=== PATIENT | female | born 1995 | race Caucasian/White ===

== ENCOUNTER 2023-01-16 23:24 | Inpatient (IN) ==
[2023-01-17] MEDS ORDERED: LACTATED RINGER'S 1,000 ML IV PRN (00:01)
[2023-01-17] MEDS ORDERED: LIDOCAINE 1% LOCAL 20 ML VIAL INFIL PRN (00:01)
[2023-01-17] MEDS ORDERED: OXYTOCIN 30 UNITS/500 ML BAG IV PRN ×2 (00:01→00:48)
[2023-01-17] MEDS ORDERED: OXYTOCIN 30 UNITS/500ML NSS IV ONE (00:10)
[2023-01-17] MEDS ORDERED: METHYLERGONOVINE MALEATE 0.2 MG/ML AMP ONE (00:34)
[2023-01-17 00:35] LABS: Hematocrit (blood only) 38.5 % (37.0-47.0); Hemoglobin 13.6 g/dl (12.0-16.0); Mean Corpuscular Hemoglobin 30.8 pg (25.0-34.0); Mean Corpuscular Hgb Conc 35.3 g/dL (32.0-36.0); Mean Corpuscular Volume 87.1 fL (80.0-100.0); Platelet Count 197 K/uL (130-400); RDW Coefficient of Variation 14.1 % (11.5-14.5); RDW Standard Deviation 45.1 fL (36.4-46.3); Red Blood Count 4.42 M/uL (4.20-5.40); White Blood Count 11.96 K/ul (4.8-10.8)
--- NOTE | 2023-01-17 00:47 | Delivery Summary ---
Vaginal Delivery Summary Date of Service January 17, 2023 Vaginal Delivery Summary Delivery Note 27 F P1001 at 39.6 weeks presents to L&D with SROM clear fluid and onset of precipitous labor and delivery. She pushed twice over intact perineum with delivery of live female CARLINE with nuchal cord x1 resuced at delivery of the head. Cord blood obtained followed by spontaneous delivery of intact placenta. Some atony noted and Methergine 0.2 mg given IM x1. Small first degree tear repaired with 3/0 Vicryl suture. EBL 150 ml. Final sponge, needle and instrument count are correct. Mom and baby stable.
[2023-01-17] MEDS ORDERED: LACTATED RINGER'S 1,000 ML IV SCH (00:48)
[2023-01-17] MEDS ORDERED: DIPHTHERIA/TETANUS/PERTUSSIS Vaccine (Tdap, Age 7+yrs) 0.5mL SYR/VL IM ONE (00:48)
[2023-01-17] MEDS ORDERED: BENZOCAINE 20% SPRY 85 APPLN/85 GM CAN EXT PRN (00:48)
[2023-01-17] MEDS ORDERED: bisacodyL 10 MG SUPP PR PRN (00:48)
[2023-01-17] MEDS ORDERED: HYDROCORTISONE ACETATE 25 MG SUPP PR PRN (00:48)
[2023-01-17] MEDS ORDERED: METHYLERGONOVINE MALEATE 0.2 MG/ML AMP IM ONE (00:48)
[2023-01-17] MEDS ORDERED: ACETAMINOPHEN 325 MG TAB PO PRN (00:48)
[2023-01-17] MEDS: IBUPROFEN 600 MG TAB PO PRN ×4 (02:20→19:57)
[2023-01-17] MEDS: FERROUS SULFATE 325 MG TAB PO SCH (08:39)
[2023-01-17] MEDS: DOCUSATE SODIUM 100 MG CAP PO SCH ×2 (08:39→19:58)
[2023-01-17] MEDS: PRENATAL VITAMIN 1 TAB PO SCH (08:39)
[2023-01-17] MEDS ORDERED: [UNRECOGNIZED DRUG - OTHER] PO SCH (09:00)
[2023-01-18] MEDS: DOCUSATE SODIUM 100 MG CAP PO SCH (07:26)
[2023-01-18] MEDS: PRENATAL VITAMIN 1 TAB PO SCH (07:26)
[2023-01-18] MEDS: IBUPROFEN 600 MG TAB PO PRN (07:27)
[2023-01-18] MEDS: FERROUS SULFATE 325 MG TAB PO SCH (07:27)
[2023-01-18 07:53] LABS: Hematocrit (blood only) 32.9 % (37.0-47.0); Hemoglobin 11.4 g/dl (12.0-16.0); Mean Corpuscular Hemoglobin 31.3 pg (25.0-34.0); Mean Corpuscular Hgb Conc 34.7 g/dL (32.0-36.0); Mean Corpuscular Volume 90.4 fL (80.0-100.0); Platelet Count 169 K/uL (130-400); RDW Coefficient of Variation 14.6 % (11.5-14.5); RDW Standard Deviation 48.1 fL (36.4-46.3); Red Blood Count 3.64 M/uL (4.20-5.40)
[2023-01-18] MEDS ORDERED: bisacodyL 5 MG TABEC PO SCH (20:00)
== END 2023-01-18 11:27 | disposition home or self-care (01) | DRG 807 ==
LOC: OPB 23:24 → 4S1 23:25 → 4E2 01-17 03:36